=== PATIENT | male | born 1965 | race Caucasian/White ===

== ENCOUNTER 2020-07-06 08:25 | Outpatient (CLI) | payer BC, SELFPAY ==
--- NOTE | 2020-07-06 08:38 | US_ITS ---
WS: [id number] TESTICULAR ULTRASOUND HISTORY: L TESTICULAR PAIN/ L TESTICULAR NODULE/LESION COMPARISON: None available. TECHNIQUE: Real-time and color Doppler imaging or utilized to perform a testicular ultrasound. Right testicle: 4.5 cm x 3.5 cm x 2.4 cm. Normal size and echogenicity. No mass or torsion. Normal color Doppler is present throughout. Systolic and diastolic velocities are both present. Small simple hydrocele. Right epididymis: Small epididymal head cyst or spermatocele with a maximum diameter of 3 mm. No incr eased vascularity in the epididymis. Left testicle: 4.3 cm x 2.9 cm x 2.1 cm. Normal size and echogenicity. No mass or torsion. Normal color Doppler is present throughout. Systolic and diastolic velocities are both present. Small hydrocele. Left epididymis: Epididymis is enlarged and heterogeneous. No increased vascularity. US/US scrotum [id number] IMPRESSION: 1. No testicular mass or torsion. 2. Mildly enlarged epididymis. Without increased vascularity. May be related t o chronic epididymitis.
== END 2020-07-06 08:26 | disposition home or self-care (01) ==
LOC: RAD 08:36
PROVIDERS: PCP Nurse Practitioner Family; Visit Provider Nurse Practitioner Family
DX: N50.812 Left testicular pain (principal); N50.89 Other specified disorders of the male genital organs
CPT/HCPCS: 76870